=== PATIENT | male | born 1970 | race Caucasian/White ===

== ENCOUNTER 2016-12-31 19:26 | Emergency (ER) | payer OTHER ==
[~2016-12-31] VITALS: Ht 175.3 cm; Wt 76.2 kg
[~2016-12-31 19:26] MED LIST: CYCL1TAB29 PO; HYDR-3533 PO
[2016-12-31 19:29] VITALS: BP 117/86; PULSE 93; RESP 16; TEMP 98.3; O2SAT 100
[2016-12-31] MEDS ORDERED: KETOROLAC TROMETHAMINE 30 MG/ML (IVP) VIAL IV PUSH ONE (19:45)
[2016-12-31] MEDS ORDERED: SODIUM CHLORIDE 0.9% FLUSH 10 ML FLUSH IV FLUSH PRN (19:45)
[2016-12-31] MEDS ORDERED: TETANUS/DIPHTHERIA TOXOID ADULT 0.5 ML VIAL IM ONE (19:45)
[2016-12-31] MEDS ORDERED: IBUP-232 PO (19:46)
--- NOTE | 2016-12-31 19:52 | PD ---
HPI Chief Complaint: Bite or Sting Time Seen by Provider: 19:39 Travel History International Travel<30 days: No Contact w/Intl Traveler<30days: No Traveled to known affect area: No History of Present Illness HPI 46-year-old male here for evaluation after being bitten in his right hand by his cat yesterday. Patient reports that he went to an urgent care facility today, and they advised him to present to the emergency department for evaluation as there seemed to be spread of infection on his right arm. Patient is right-handed. He states that the cat is vaccinated and is an indoor cat. Pain is moderate, worse with movement and palpation. No fevers or chills. Date of last tetanus is unknown. He is right handed. [facility] Past Medical History Asthma: No Blood Disorders: No Anxiety: No Depression: No Heart Rhythm Problems: No Cancer: Yes (TESTICLULAR) Cardiovascular Problems: No High Cholesterol: No Chemotherapy: Yes Chest Pain: No Congestive Heart Failure: No COPD: No Diabetes: No Diminished Hearing: No Diverticulitis: Yes Endocrine: No Genitourinary: No Hepatitis: No Hiatal Hernia: No Immune Disorder: Yes (HERPES) Musculoskeletal: No Neurologic: No Psychiatric: No Reproductive: Yes (TESTICULAR CANCER) Respiratory: No Radiation Therapy: No Sleep Apnea: No Thyroid Disease: No Past Surgical History Abdominal Surgery: Yes (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) AICD: No Ear Surgery: No Endocrine Surgery: No Eye Surgery: No Genitourinary Surgery: Yes (ORCHIECTOMY, KIDNEY REMOVED 06/04/16) Gynecologic Surgery: No Joint Replacement: No Oral Surgery: No Pacemaker: No Other Surgery: Yes (LEFT ORCHIDECTOMY) Social History Alcohol Use: Yes (OCC.) Tobacco Use: Yes (< 1 PPD) Substance Use: No Allergies-Medications (Allergen,Severity, Reaction): Coded Allergies: No Known Allergies (Verified , 12/31/16) Reported Meds & Prescriptions Reported Meds & Active Scripts Active Reported Ibuprofen 600 Mg Tab 600 Mg PO Q6H PRN Review of Systems Except as stated in HPI: all other systems reviewed are Neg Physical Exam Narrative GENERAL: Well-developed, well-nourished, comfortable, no acute distress. SKIN: Single puncture wound on both the dorsal and palmar aspect of the right thenar eminence with surrounding warmth and erythema as well as moderate edema to the right thenar eminence. Slight lymphangitis up the right forearm. No [place] signs. Although thenar eminence is swollen, there is no fluctuance or induration to suggest deep space abscess. HEAD: Atraumatic. Normocephalic. EYES: Pupils equal and round. No scleral icterus. No injection or drainage. ENT: No nasal bleeding or discharge. Mucous membranes pink and moist. CARDIOVASCULAR: Regular rate and rhythm. Normal capillary refill in right hand. Bilateral distal radial pulses are brisk and equal. RESPIRATORY: No accessory muscle use. Clear to auscultation. Breath sounds equal bilaterally. GASTROINTESTINAL: Abdomen soft, non-tender, nondistended. MUSCULOSKELETAL: Skin exam as above. NEUROLOGICAL: Awake and alert. No obvious cranial nerve deficits. Motor grossly within normal limits. Normal speech. PSYCHIATRIC: Appropriate mood and affect; insight and judgment normal. Data Data Last Documented VS Vital Signs Date Time Temp Pulse Resp B/P Pulse Ox O2 Delivery O2 Flow Rate FiO2 12/31/16 19:29 98.3 93 16 117/86 100 Orders Basic Metabolic Panel (Bmp) (12/31/16 19:44) Complete Blood Count With Diff (12/31/16 19:44) Prothrombin Time / Inr (Pt) (12/31/16 19:44) Act Partial Throm Time (Ptt) (12/31/16 19:44) Iv Access Insert/Monitor (12/31/16 19:44) Ecg Monitoring (12/31/16 19:44) Oximetry (12/31/16 19:44) Sodium Chloride 0.9% Flush (Ns Flush) (12/31/16 19:45) Tetanus/Diphtheria Tox Adult (Tetanus/Di (12/31/16 19:45) Blood Culture (12/31/16 19:44) Hand, Complete (Rub5hdp) (12/31/16 ) Ketorolac Inj (Toradol Inj) (12/31/16 19:45) Ampicillin-Sulbactam Inj (Unasyn Inj) (12/31/16 20:00) Labs Laboratory Tests Test 12/31/16 20:05 White Blood Count 15.2 TH/MM3 Red Blood Count 4.97 MIL/MM3 Hemoglobin 15.2 GM/DL Hematocrit 44.6 % Mean Corpuscular Volume 89.8 FL Mean Corpuscular Hemoglobin 30.6 PG Mean Corpuscular Hemoglobin 34.1 % Concent Red Cell Distribution Width 13.2 % Platelet Count 237 TH/MM3 Mean Platelet Volume 7.8 FL Neutrophils (%) (Auto) 66.0 % Lymphocytes (%) (Auto) 23.6 % Monocytes (%) (Auto) 5.0 % Eosinophils (%) (Auto) 3.0 % Basophils (%) (Auto) 2.4 % Neutrophils # (Auto) 9.9 TH/MM3 Lymphocytes # (Auto) 3.6 TH/MM3 Monocytes # (Auto) 0.8 TH/MM3 Eosinophils # (Auto) 0.5 TH/MM3 Basophils # (Auto) 0.4 TH/MM3 CBC Comment DIFF FINAL Differential Comment Sodium Level 142 MEQ/L Potassium Level 3.5 MEQ/L Chloride Level 107 MEQ/L Carbon Dioxide Level 29.3 MEQ/L Anion Gap 6 MEQ/L Blood Urea Nitrogen 13 MG/DL Creatinine 1.50 MG/DL Estimat Glomerular Filtration 50 ML/MIN Rate Random Glucose 125 MG/DL Calcium Level 8.5 MG/DL MDM Medical Decision Making Medical Screen Exam Complete: Yes Emergency Medical Condition: Yes Differential Diagnosis Cat bite, cellulitis, hand abscess Narrative Course Vital signs reviewed. CBC is remarkable for WBC 15.2, otherwise unremarkable. BMP is remarkable for creatinine 1.5, GFR 50. The patient is aware of baseline renal insufficiency. Right hand x-ray shows no radiopaque foreign body. Patient was given a dose of Unasyn here in the emergency department as well as a dose of Toradol. He reports improvement in pain symptoms. I discussed with him that I would like to admit him for further IV antibiotic therapy, however the patient does not want to be admitted at this time. Although there is some swelling in the right thenar eminence, there is no induration or fluctuance to suggest a deep space hand infection. I will start him on Augmentin and I provided him strict return instructions. I will also given the name of the hand surgeon sales service professional with whom to follow-up within the next 2 days. He was informed on when to return to the emergency Department sooner. He verbalizes understanding and agreement with plan. Diagnosis Primary Impression: Cat bite of hand Qualified Code: S61.451A - Cat bite of hand, right, initial encounter Referrals: Matteo Paniagua III, MD 2 days Primary Care Physician 2 days Additional Instructions: Follow-up with a primary care physician in the next 2 days. Follow-up with hand surgeon Dr. Paniagua in the next 2 days. Return to the Emergency Department in 2 days if your unable to follow up with anyone for a wound check. Return to the Emergency Department sooner for worsening symptoms or any other concerns as discussed. Scripts Amoxicillin-Clavulanate (Augmentin)875-125 Mg Tab1 Tab PO BID 10 Days Ref 0 Prov:Daniel Zayas MD 12/31/16 Disposition: 01 DISCHARGE HOME Condition: Stable Daniel Zayas MD December 31, 2016 19:52
[2016-12-31] MEDS ORDERED: AMPICILLIN-SULBACTAM INJ 3 GM in SODIUM CHLORIDE 0.9% INJ 100 ML IV ONE (20:00)
--- NOTE | 2016-12-31 20:15 | RADHPO ---
EXAM DATE/TIME: 12/31/2016 20:04 [facility] COMPARISON: No previous studies available for comparison. INDICATIONS : Right hand pain. Patient states he got bit by a cat yesterday. MEDICAL HISTORY : None. SURGICAL HISTORY : None. ENCOUNTER: Initial ACUITY: 2 days PAIN SCORE: 7/10 LOCATION: Right hand. FINDINGS: Three view examination of the right hand demonstrates no soft tissue swelling, dislocation, or fractu re. The carpal bones appear intact. No radiopaque foreign body. The interphalangeal and metacarpoph alangeal joints are intact. Bony mineralization is normal. CONCLUSION: 1. No radiopaque foreign body observed. Jagdish Blackwell Jr., MD on December 31, 2016 at 20:13 Board Certified Radiologist. This report was verified electronically.
[2016-12-31 20:23] LABS: AUTOMATED NEUTROPHIL # 9.9 TH/MM3 (1.8-7.7); BASOPHIL # 0.4 TH/MM3 (0-0.2); BASOPHIL % 2.4 % (0.0-2.0); EOSINOPHIL # 0.5 TH/MM3 (0-0.4); HEMATOCRIT 44.6 % (39.0-51.0); LYMPH % 23.6 % (9.0-44.0); LYMPHOCYTE # 3.6 TH/MM3 (1.0-4.8); MEAN CELL VOLUME 89.8 FL (80.0-100.0); MEAN CORPUSCULAR HEMOGLOBIN 30.6 PG (27.0-34.0); MEAN CORPUSCULAR HGB CONC 34.1 % (32.0-36.0); PLATELET COUNT 237 TH/MM3 (150-450); RED BLOOD COUNT 4.97 MIL/MM3 (4.50-5.90); RED CELL DISTRIBUTION WIDTH 13.2 % (11.6-17.2); WHITE BLOOD COUNT 15.2 TH/MM3 (4.0-11.0)
[2016-12-31 20:29] LABS: HEMO FLAGS DIFF FINAL
[2016-12-31 20:32] LABS: POTASSIUM 3.5 MEQ/L (3.5-5.1)
[2016-12-31 20:36] LABS: BICARBONATE 29.3 MEQ/L (21.0-32.0)
[2016-12-31] MEDS ORDERED: AUGM875T3 PO (20:49)
[2016-12-31 21:01] VITALS: BP 127/80
[2016-12-31 21:06] LABS: APTT (PATIENT) 27.8 SEC (24.3-30.1); PROTHROMBIN TIME - PATIENT 10.9 SEC (9.8-11.6)
== END 2016-12-31 21:01 | disposition home or self-care (01) ==
LOC: PHED 19:26
DX: S61.451A Open bite of right hand, initial encounter (principal); F17.200 Nicotine dependence, unspecified, uncomplicated; Z85.47 Personal history of malignant neoplasm of testis
CPT/HCPCS: 73130; 80048; 85025; 85610; 85730; 86403; 87040; 87205; 90471; 90714; 96365; 96375; 99284; J0295; J1885

== ENCOUNTER 2017-03-27 13:52 | Emergency (ER) | payer OTHER ==
[~2017-03-27] VITALS: Ht 172.7 cm; Wt 75.0 kg
[~2017-03-27 13:52] MED LIST changes: +AUGM875T3 PO; -CYCL1TAB29 PO; -HYDR-3533 PO; +IBUP-232 PO
[2017-03-27 13:58] VITALS: BP 113/69; PULSE 114; RESP 16; TEMP 98.8; O2SAT 98
[2017-03-27] MEDS ORDERED: ACYC200C66 PO (14:13)
--- NOTE | 2017-03-27 14:24 | PD ---
HPI . Urinary complaint Chief Complaint: Complaint Time Seen by Provider: 14:10 Travel History International Travel<30 days: No Contact w/Intl Traveler<30days: No Traveled to known affect area: No History of Present Illness HPI This patient presents with the chief complaint of orange urine which is malodorous. Onset was yesterday. Symptoms have persisted causing him to present to us today. In addition, he is complaining with dysuria and frequency of urination as well as subjective fevers and chills and myalgias. He denies pain. He has not had any vomiting. He has tried increased oral fluid intake without relief of his symptoms. PFSH Past Medical History Asthma: No Blood Disorders: No Anxiety: No Depression: No Heart Rhythm Problems: No Cancer: Yes (TESTICLULAR) Cardiovascular Problems: No High Cholesterol: No Chemotherapy: Yes Chest Pain: No Congestive Heart Failure: No COPD: No Diabetes: No Diminished Hearing: No Diverticulitis: Yes Endocrine: No Gastrointestinal Disorders: No Genitourinary: No Hepatitis: No Hiatal Hernia: No Hypertension: No Immune Disorder: Yes (HERPES) Musculoskeletal: No Neurologic: No Psychiatric: No Reproductive: Yes (TESTICULAR CANCER) Respiratory: No Radiation Therapy: No Sleep Apnea: No Thyroid Disease: No Influenza Vaccination: No ?: Not Past Surgical History Abdominal Surgery: Yes (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) AICD: No Ear Surgery: No Endocrine Surgery: No Eye Surgery: No Genitourinary Surgery: Yes (ORCHIECTOMY, KIDNEY REMOVED 06/04/16) Gynecologic Surgery: No Joint Replacement: No Neurologic Surgery: No Oral Surgery: No Pacemaker: No Thoracic Surgery: Yes (Port placement and removal) Other Surgery: Yes (LEFT ORCHIDECTOMY) Social History Alcohol Use: Yes (OCC.) Tobacco Use: Yes (< 1 PPD) Substance Use: No Allergies-Medications (Allergen,Severity, Reaction): Coded Allergies: No Known Allergies (Verified , 01/03/17) Reported Meds & Prescriptions Reported Meds & Active Scripts Active Reported Acyclovir 200 Mg Cap 200 Mg PO DIRECTED Ibuprofen 600 Mg Tab 600 Mg PO Q6H PRN Review of Systems Except as stated in HPI: all other systems reviewed are Neg General / Constitutional: Positive: Fever, Chills Gastrointestinal: No: Nausea, Vomiting, Abdominal Pain Genitourinary: Positive: Frequency, Dysuria, No: Flank Pain Physical Exam Narrative GENERAL: Patient is awake and alert and in no acute distress. SKIN: Warm and dry. HEAD: Atraumatic. Normocephalic. EYES: Pupils equal and round. ENT: No nasal bleeding or discharge. Mucous membranes pink and moist. NECK: Trachea midline. CARDIOVASCULAR: Regular rate and rhythm. RESPIRATORY: No accessory muscle use. GASTROINTESTINAL: Abdomen soft, non-tender, nondistended. No CVA tenderness. MUSCULOSKELETAL: No obvious deformities. No edema. NEUROLOGICAL: Awake and alert. No obvious cranial nerve deficits. Motor grossly within normal limits. Normal speech. PSYCHIATRIC: Appropriate mood and affect; insight and judgment normal. Data Data Last Documented VS Vital Signs Date Time Temp Pulse Resp B/P (MAP) Pulse Ox O2 Delivery O2 Flow Rate FiO2 03/27/17 13:58 98.8 114 16 113/69 (84) 98 Orders Orders Urinalysis - C+S If Indicated (03/27/17 14:10) Labs Laboratory Tests Test 03/27/17 14:15 Urine Collection Type CLEAN CATCH Urine Color STRAW Urine Turbidity CLEAR Urine pH 6.0 Urine Specific [place] 1.003 Urine Protein NEG mg/dL Urine Glucose (UA) NEG mg/dL Urine Ketones NEG mg/dL Urine Occult Blood TRACE Urine Nitrite NEG Urine Bilirubin NEG Urine Leukocyte Esterase SMALL Urine RBC 0-3 /hpf Urine WBC 0-2 /hpf Urine Squamous Epithelial Cells 0-5 /hpf Microscopic Urinalysis Comment CULT NOT INDICATED Urine Collection Time 14:15 [facility] Medical Decision Making Medical Screen Exam Complete: Yes Emergency Medical Condition: Yes Differential Diagnosis Final differential diagnosis of urinary symptoms includes but is not limited to UTI, kidney stone, pyelonephritis, urinary retention Narrative Course This patient presents complaining with discolored and malodorous urine since yesterday. He has his urine at the bedside and it is clear and straw-colored. Because of the normal appearance of his urine, I have not ordered labs and fluids. His UA has trace blood, small leukocyte esterase, 0-2 white blood cells. His urine is really not very impressive. However, he does have signs and symptoms suggestive of urethritis. He'll be treated with doxycycline. Diagnosis Primary Impression: Urethritis Patient Instructions: General Instructions, Nonspecific Urethritis in Men (DC) Med/Other Pt SpecificInfo: Prescription(s) given Scripts Doxycycline Hyclate (Doxycycline Hyclate) 100 Mg Cap 100 MG PO BID for Infection, #20 CAP 0 Refills Prov: Cynthia Serrano MD 03/27/17 Disposition: 01 DISCHARGE HOME Condition: Stable Cynthia Serrano MD Mar 27, 2017 14:24
[2017-03-27 14:25] LABS: BLOOD, URINE TRACE (NEG); GLUCOSE,URINE NEG (NEG); KETONE, URINE NEG (NEG); NITRITE,URINE NEG (NEG)
[2017-03-27 14:44] LABS: COMMENT (UR) CULT NOT INDICATED; CULTURE IF INDICATED CULT NOT INDICATED; METHOD OF COLLECTION CLEAN CATCH; RBC, URINE 0-3 /hpf (0-3); SQUAMOUS EPITHELIAL CELL URINE 0-5 /hpf (0-5); URINE COLOR STRAW (YELLW/STRAW); WBC, URINE 0-2 /hpf (0-5)
[2017-03-27] MEDS ORDERED: DOXY100C PO (14:59)
== END 2017-03-27 15:10 | disposition home or self-care (01) ==
LOC: PHED 13:52
DX: N34.2 Other urethritis (principal); F17.210 Nicotine dependence, cigarettes, uncomplicated; C62.90 Malignant neoplasm of unspecified testis, unspecified whether descended or undescended; Z87.19 Personal history of other diseases of the digestive system; Z90.5 Acquired absence of kidney
CPT/HCPCS: 81001; 99283